=== PATIENT | female | born 1970 | race Caucasian/White ===

== ENCOUNTER 2019-10-24 12:01 | Emergency (ER) | payer OTHER ==
[~2019-10-24] VITALS: Ht 157.5 cm; Wt 54.0 kg
--- NOTE | 2019-10-24 12:18 | NUR ---
CALLED TO TRIAGE,NO ANSWER
--- NOTE | 2019-10-24 12:21 | NUR ---
CALLED TO TRIAGE NO ANSWER
[2019-10-24 13:04] LABS: BASOPHILS % (AUTO) 0.6 % (0.0-2.0); EOSINOPHILS % (AUTO) 0.3 % (0.0-6.0); HEMATOCRIT 39 % (33-45); HEMOGLOBIN 13.2 g/dL (11.5-14.8); LYMPHOCYTES # (AUTO) 1.5 /CMM (0.8-4.8); LYMPHOCYTES % (AUTO) 22.3 % (20.0-44.0); MEAN CORPUSCULAR HGB CONC 34 g/dl (31.0-36.0); MEAN CORPUSCULAR VOLUME 94 fL (82-100); MONOCYTES # (AUTO) 0.5 /CMM (0.1-1.30); MONOCYTES % (AUTO) 8.1 % (2.0-12.0); NEUTROPHILS # (AUTO) 4.5 /CMM (1.8-8.9); NEUTROPHILS % (AUTO) 68.7 % (43.0-81.0); PLATELET COUNT (AUTO) 287 /CMM (150-450); RED BLOOD CELL COUNT(AUTO) 4.16 MIL/uL (4.0-5.2); WHITE BLOOD COUNT (AUTO) 6.6 K/uL (4.3-11.0)
[2019-10-24 13:17] LABS: CREATININE 0.7 mg/dL (0.6-1.3); POTASSIUM 3.6 mmol/L (3.5-5.1)
[2019-10-24 13:25] LABS: ALBUMIN 3.8 g/dL (3.4-5.0); BILIRUBIN,DIRECT 0.1 mg/dL (0.0-0.2); BILIRUBIN,TOTAL 0.5 mg/dL (0.2-1.0); TOTAL PROTEIN, SERUM 7.1 g/dL (6.4-8.2)
--- NOTE | 2019-10-24 13:25 | NUR ---
Patient awake alert stated RT arm and leg numbness patient has equal bilateral hand grasp m,and good bilateral pedal pushes ,no slurr speech ,no facial droop
[2019-10-24 14:10] VITALS: BP 123/89
--- NOTE | 2019-10-24 14:35 | NUR ---
Patient discharged to home in stable condition. Written and verbal after care instructions given. Patient verbalizes understanding of instruction.
== END 2019-10-24 14:35 | disposition home or self-care (01) ==
LOC: ER 12:05
DX: S02.5XXA Fracture of tooth (traumatic), initial encounter for closed fracture (principal); S09.8XXA Other specified injuries of head, initial encounter; H02.402 Unspecified ptosis of left eyelid; M50.30 Other cervical disc degeneration, unspecified cervical region; M47.9 Spondylosis, unspecified; M51.36 Other intervertebral disc degeneration, lumbar region; R20.2 Paresthesia of skin; R51 Headache; F17.200 Nicotine dependence, unspecified, uncomplicated; Z60.2 Problems related to living alone; V00.838A Other accident with motorized mobility scooter, initial encounter; Y93.89 Activity, other specified; Y92.89 Other specified places as the place of occurrence of the external cause; Y99.8 Other external cause status
CPT/HCPCS: 36415; 70450-TC; 70486-TC; 72125-TC; 72131-TC; 80048-TC; 80076-TC; 85025-TC